=== PATIENT | male | born 1975 | race Two or more races ===

== ENCOUNTER 2019-05-24 14:19 | Outpatient (CLI) | payer BC ==
[~2019-05-24] VITALS: Ht 185.4 cm; Wt 90.7 kg
== END 2019-05-24 14:35 | disposition home or self-care (01) ==
LOC: OFIC 805 14:19
DX: J30.89 Other allergic rhinitis (principal); J34.2 Deviated nasal septum; H90.3 Sensorineural hearing loss, bilateral

== ENCOUNTER → 2019-06-01 | Outpatient (CLI) | payer BC | END | disposition home or self-care (01) | LOC: TOM 09:30 | DX: J32.9 Chronic sinusitis, unspecified (principal); J34.2 Deviated nasal septum ==

== ENCOUNTER 2019-06-04 12:38 | Outpatient (CLI) | payer BC | END 2019-06-04 12:55 | disposition home or self-care (01) | LOC: OFIC 805 12:38 | DX: H90.42 Sensorineural hearing loss, unilateral, left ear, with unrestricted hearing on the contralateral side (principal); J34.2 Deviated nasal septum; J30.89 Other allergic rhinitis ==

== ENCOUNTER 2020-01-01 15:45 | Outpatient (CLI) | payer BC | END 2020-01-02 10:18 | disposition home or self-care (01) | LOC: OFIC 805 15:45 | DX: H91.8X3 Other specified hearing loss, bilateral (principal); J34.2 Deviated nasal septum; J30.89 Other allergic rhinitis; I95.89 Other hypotension ==

== ENCOUNTER 2020-12-31 12:06 | Outpatient (CLI) | payer BC | END 2020-12-31 14:39 | disposition home or self-care (01) | LOC: OFIC 805 12:06 | PROVIDERS: ATTEND Otolaryngology | DX: J34.2 Deviated nasal septum (principal); J30.89 Other allergic rhinitis; H90.3 Sensorineural hearing loss, bilateral ==